=== PATIENT | male | born 1980 | race Caucasian/White ===

== ENCOUNTER 2019-12-18 01:54 | Emergency (ER) | payer BC ==
[2019-12-18] MEDS ORDERED: NORMAL SALINE 1000 ML 1,000 ML IV ONE (03:26)
[2019-12-18] MEDS ORDERED: CEFTRIAXONE 1 GM/D5W RTU 1 GM/50 ML RTUPB IV ONE (03:26)
[2019-12-18] MEDS ORDERED: SULFAMETHOXAZOLE/TRIMETHOPRIM 800-160 MG TABLET PO ONE (03:26)
--- NOTE | 2019-12-18 03:31 | ER Document Report ---
ED Extremity Problem, Upper - General Chief Complaint: Arm Pain Stated Complaint: LEFT FINGER INJURY/ARM PAIN Time Seen by Provider: 12/18/19 03:14 Notes: Patient is a 39-year-old male that comes to the emergency department for chief complaint of developing pain to his third digit, pain is adjacent to the nail and spreading of the finger slightly, he has full range of motion at the finger, he denies injury but he states he was working in her house and he wonders if he got a small piece of metal into the finger. Patient also states that this was going on for several days until today he started feeling chills and he started getting a red painful area near the left inner bicep which is worsening. He denies vomiting, he denies ever using IV drugs in his life, he denies any daily medications. His tetanus is up-to-date within 5 years. He states he has smoked occasional marijuana but denies recreational substances otherwise. 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 TRAVEL OUTSIDE OF THE [place] IN LAST 30 DAYS: No - Related Data Allergies/Adverse Reactions: No Known Allergies Allergy (Verified 02/18/14 15:09) Past Medical History - General Information source: Patient - Social History Smoking Status: Current Every Day Smoker Chew tobacco use (# tins/day): No Smoking Education Provided: Yes - <3 min Frequency of alcohol use: Occasional Drug Abuse: None Lives with: Family Family History: Reviewed & Not Pertinent Patient has suicidal ideation: No Patient has homicidal ideation: No - Immunizations Immunizations up to date: Yes Hx Diphtheria, Pertussis, Tetanus Vaccination: Yes Review of Systems - Review of Systems Constitutional: No symptoms reported EENT: No symptoms reported Cardiovascular: No symptoms reported Respiratory: No symptoms reported Gastrointestinal: No symptoms reported Genitourinary: No symptoms reported Male Genitourinary: No symptoms reported Musculoskeletal: See HPI Skin: See HPI Hematologic/Lymphatic: No symptoms reported Neurological/Psychological: No symptoms reported Physical Exam - Vital signs Vitals: Temp Pulse Resp BP Pulse Ox 100.0 F 110 H 18 126/81 H 98 12/18/19 02:07 12/18/19 02:07 12/18/19 02:07 12/18/19 02:07 12/18/19 02:07 - Notes Notes: GENERAL: Alert, interacts well. No acute distress. HEAD: Normocephalic, atraumatic. EYES: Pupils equal, round, and reactive to light. Extraocular movements intact. ENT: Oral mucosa moist, tongue midline. Oropharynx unremarkable. Airway patent. LUNGS: Clear to auscultation bilaterally, no wheezes, rales, or rhonchi. No respiratory distress. HEART: Regular rate and rhythm. No murmur ABDOMEN: Soft, non-tender. Non-distended. EXTREMITIES: There is paronychia with swelling over the lateral dorsal aspect adjacent to the nail in the left third digit. There is no evidence of felon. There is normal capillary refill. There is normal range of motion at the PIP and DIP joint with no significant swelling along the finger except over the par onychia area with surrounding erythema/cellulitis. Normal hand exam, normal wrist exam. There is also erythema, warmth, tenderness, and a red streak consistent with lymphangitis over the left medial bicep area. Range of motion of the elbow and shoulder are normal. Normal upper extremity otherwise exam, remaining extremities are normal. BACK: no cervical, thoracic, lumbar midline tenderness. No saddle anesthesia, normal distal neurovascular exam. Moves all extremities in full range of motion. NEUROLOGICAL: Alert and oriented x3. Normal speech. Cranial nerves II through XII grossly intact. PSYCH: Normal affect, normal mood. SKIN: Warm, dry, normal turgor. No rashes or lesions noted. Course - Re-evaluation Re-evalutation: Patient mildly tachycardic with a temperature of 100 F on initial presentation, on my exam he is not tachycardic, on repeat of temperature before treatment with Toradol he was not febrile. Patient has no evidence of Knievel signs and I do not see any evidence of flexor tenosynovitis, he has full range of motion at the finger, the area appears to be a paronychia with some cellulitis. Because of the significant swelling on one side we decided to drain this, there is no significant purulent drainage however. Patient also have some red streaking along the left medial bicep but normal range of motion at the elbow and shoulder, no induration or fluctuance suggesting abscess. Area was traced. CBC unremarkable, chemistry unremarkable without diabetes. Patient was given Rocephin and Bactrim. Discussed wound care, resting the arm, treatment with antibiotics, follow-up, strict return precautions. Patient states appreciation and agreement. Stable and well-appearing at time of discharge. - Vital Signs Vital signs: Temp Pulse Resp BP Pulse Ox 98.4 F 110 H 17 121/81 98 12/18/19 06:38 12/18/19 02:07 12/18/19 06:38 12/18/19 06:38 12/18/19 02:07 - Laboratory Result Diagrams: 12/18/19 03:34 12/18/19 03:34 Laboratory results interpreted by me: 12/18/19 03:34 [facility] 36.1 H Procedures - Incision and Drainage Left third digit paronychia Type: Single Anesthetic type: 1% Lidocaine, 0.5% Bupivacaine mL's of anesthetic: 5 - Digital block Blade size: 11 I&D procedure: Shurclens applied, Sterile dressing applied Incision Method: Incision made by scalpel Amount/type of drainage: Mixed bloody drainage without overt purulent drainage Discharge - Discharge Clinical Impression: Finger pain, left, Paronychia, Lymphangitis Condition: Stable Disposition: HOME, SELF-CARE Additional Instructions: Your evaluation shows paronychia with infection at the left index finger. You also have what appears to be lymphangitis/cellulitis. Take antibiotics as prescribed to completion. Clean your finger with soap and water, apply topical antibiotic and clean dressing, do this at least daily. I recommend resting/elevating your arm. Take the antibiotics as prescribed to co mpletion. Follow-up with primary care. Return immediately if you worsen in any way including swelling of the arm, spreading redness, spiking fevers, vomiting, or any other concerning or worsening symptoms. Prescriptions: Sulfamethoxazole/Trimethoprim [Bactrim Ds Tablet] 1 each PO BID #14 tablet Cephalexin Monohydrate [Keflex 500 mg Capsule] 500 mg PO QID #28 capsule Forms: Return to Work
[2019-12-18 03:58] LABS: ABSOLUTE EOSINOPHILS # (AUTO) 0.1 10^3/uL (0.0-0.6); ABSOLUTE LYMPHOCYTES (AUTO) 1.1 10^3/uL (0.5-4.7); ABSOLUTE MONOCYTES (AUTO) 0.7 10^3/uL (0.1-1.4); ABSOLUTE NEUT (AUTO) 4.3 10^3/uL (1.7-8.2); BASOPHILS % (AUTO) 0.6 % (0-2); EOSINOPHILS % (AUTO) 1.1 % (0-6); HEMATOCRIT 46.4 % (37.9-51.0); HEMOGLOBIN 16.8 g/dL (13.5-17.0); LYMPHOCYTES % (AUTO) 18.3 % (13-45); MEAN CORPUSCULAR HEMOGLOBIN 32.2 pg (27.0-33.4); MEAN CORPUSCULAR HGB CONC 36.1 g/dL (32.0-36.0); MEAN CORPUSCULAR VOLUME 89 fl (80-97); PLATELET COUNT 189 10^3/uL (150-450); RED BLOOD COUNT 5.21 10^6/uL (4.35-5.55); RED CELL DISTRIBUTION WIDTH 12.8 % (11.5-14.0); TOTAL CELLS COUNTED % (AUTO) 100 %; WHITE BLOOD COUNT 6.2 10^3/uL (4.0-10.5)
[2019-12-18 04:09] LABS: ANION GAP 11 (5-19); BLOOD UREA NITROGEN 10 mg/dL (7-20); CALCIUM 9.2 mg/dL (8.4-10.2); CARBON DIOXIDE 25 mmol/L (22-30); CHLORIDE 102 mmol/L (98-107); GLUCOSE 95 mg/dL (75-110); POTASSIUM 3.7 mmol/L (3.6-5.0)
[2019-12-18] MEDS ORDERED: LIDOCAINE 1% INJ-PF (10 MG/ML) 30 ML SDV INJ ONE (04:56)
[2019-12-18] MEDS ORDERED: BUPIVACAINE HCL 0.5 % INJ/PF 30 ML SDV INJ ONE (04:57)
--- NOTE | 2019-12-18 05:00 | RADIOLOGY REPORT (SQ) ---
EXAM DESCRIPTION: XR FINGERS COMPLETED DATE/TME: 12/18/2019 03:27 CLINICAL HISTORY: 39 years, Male, foreign body in finger? Swelling third digit COMPARISON: None. NUMBER OF VIEWS: 3 TECHNIQUE: Left third digit LIMITATIONS: None. FINDINGS: No acute bony injury is identified. Alignment is anatomic. Soft tissue swelling of the third digit. No retained radiopaque foreign body. IMPRESSION: Soft tissue swelling. No retained radiopaque foreign body copyright 2010 [employer]- All Rights Reserved
[2019-12-18] MEDS ORDERED: KETOROLAC TROMETHAMINE INJ/PF 30 MG/1 ML SDV IV ONE (06:05)
[2019-12-18 06:38] VITALS: BP 121/81
== END 2019-12-18 06:38 | disposition home or self-care (01) ==
LOC: ER 01:54
PROC: 0H9QXZZ Drainage of Finger Nail, External Approach (ICD-10-PCS; principal; 2019-12-18)
DX: L03.022 Acute lymphangitis of left finger (principal); M79.645 Pain in left finger(s); F12.90 Cannabis use, unspecified, uncomplicated; F17.200 Nicotine dependence, unspecified, uncomplicated; R00.0 Tachycardia, unspecified
CPT/HCPCS: 99283; 96361; 96375; 96365; 36415; 87040; 85025; 80048; 73140; 10060; J3490 ×2; J1885; J7030; J0696